=== PATIENT | male | born 1950 | race Two or more races ===

== ENCOUNTER 2019-10-08 10:48 | Day surgery (SDC) | payer MEDICARE, OTHER ==
[~2019-10-08] VITALS: Ht 167.6 cm; Wt 63.5 kg
[2019-10-08] VITALS (12 sets, daily range): BP systolic 146–163; BP diastolic 82–95
[~2019-10-08 10:48] MED LIST: ATORVASTATIN CA40 MG ORAL; METFORMIN HCL500 M1 ORAL; ceFAZolin sod 1 GM in NS 55 ML IVPB ONE
[2019-10-08] MEDS ORDERED: LR 1000ml 1,000 ML IVLG SCH (10:54)
--- NOTE | 2019-10-08 10:56 | Immediate Post-Op Evaluation ---
Immediate Post-Op Evalulation Immediate Post-Op Evalulation Procedure: ESWL,Right Ureteral Stent Placement Date of Evaluation: Oct 08, 2019 Time of Evaluation: 14:47 IV Fluids: 900 LR Blood Products: 0 Estimated Blood Loss: 10 Urinary Output: 0 Blood Pressure Systolic: 156 Blood Pressure Diastolic: 90 Pulse Rate: 70 Respiratory Rate: 16 O2 Sat by Pulse Oximetry: 100 Temperature (Fahrenheit): 97 Pain Score (1-10): 1 Nausea: No Vomiting: No Complications 0 Patient Status: awake, reacts, patent, extubated, none Hydration Status: adequate Dru Gram Ancef IV Given Within 1 Hr of Incision: Yes Time Given: 13:11 Arcenio Velez MD Oct 08, 2019 10:56
[2019-10-08] MEDS ORDERED: DiphenhydrAMINE 50mg/ml Inj IVP PRN (11:00)
[2019-10-08] MEDS ORDERED: Labetalol 5mg/ml 20ml vial IV PRN (11:00)
[2019-10-08] MEDS ORDERED: Hydromorphone 0.5mg/0.5ml inj IVP PRN (11:00)
[2019-10-08] MEDS ORDERED: HYDROcodone/Acetamin 7.5/325 tab ORAL PRN (11:00)
[2019-10-08] MEDS ORDERED: HYDROcodone/Acetamin 5/325 tab ORAL PRN ×2 (11:00→12:30)
[2019-10-08] MEDS ORDERED: oxyCODONE HCL/Acetaminophen 5/325mg ORAL PRN (11:00)
[2019-10-08] MEDS ORDERED: Metoclopramide 10mg/2ml Inj IVP PRN (11:00)
[2019-10-08] MEDS ORDERED: Ketorolac 30mg Inj IV PRN ×2 (11:00)
[2019-10-08] MEDS ORDERED: LORazepam Inj 2mg/ml 1ml IV PRN (11:00)
[2019-10-08] MEDS ORDERED: Meperidine 25mg/0.5ml Inj (FOR RIGORS ONLY) IV PRN (11:00)
[2019-10-08] MEDS ORDERED: Atropine Sulfate 0.4mg/ml inj IVP PRN (11:00)
[2019-10-08] MEDS ORDERED: Midazolam 2mg/2ml Inj IVP PRN (11:00)
[2019-10-08] MEDS ORDERED: fentaNYL 100 mcg/2 mL IV PRN (11:00)
--- NOTE | 2019-10-08 12:21 | Pre-Procedure Note/Attestation ---
Pre-Procedure Note/Attestation Complete Prior to Procedure Planned Procedure: not applicable Procedure Narrative: right rirs eswl right Indications for Procedure Pre-Operative Diagnosis: right renal stone Attestation I attest that I discussed the nature of the procedure; its benefits; risks and complications; and alternatives (and the risks and benefits of such alternatives ), prior to the procedure, with the patient (or the patient's legal kiosk sales representative). I attest that, if there was a reasonable possibility of needing a blood transfusion, the patient (or the patient's legal kiosk sales representative) was given the [facility] standardized written summary, pursuant to the [place] Blood Safety Act ([place] Health and Safety Code # 1645, as amended). I attest that I re-evaluated the patient just prior to the surgery and that there has been no change in the patient's H&P, except as documented below: Tavo Light MD Oct 08, 2019 12:21
--- NOTE | 2019-10-08 12:23 | Anethesia Preoperative Eval ---
Anesthesia Pre-op PMH/ROS General Date of Evaluation: Oct 08, 2019 Time of Evaluation: 12:52 Anesthesiologist: Rosie ASA Score: ASA 3 Mallampati Score Class I : Soft palate, uvula, fauces, pillars visible Class II: Soft palate, uvula, fauces visible Class III: Soft palate, base of uvula visible Class IV: Only hard plate visible Mallampati Classification: Class II Surgeon: Nadege Diagnosis: Abd Pain Surgical Procedure: ESWL, Right Ureteral Stent Placement Family History: no anesthesia problems Allergies: Coded Allergies: No Known Allergies (Unverified , 10/01/19) Medications: see eMAR Patient NPO?: Yes Past Medical History Cardiovascular: Reports: HTN, other - HL Gastrointestinal/Genitourinary: Reports: other - Prostate CA, Colon CA, BPH, Hydronephrosis Endocrine: Reports: DM Anesthesia Pre-op Phys. Exam Physician Exam Last Vital Signs Date Time Temp Pulse Resp B/P (MAP) Pulse Ox O2 Delivery O2 Flow Rate FiO2 10/08/19 11:25 Room Air 10/08/19 11:23 97.5 61 18 154/84 100 Constitutional: NAD Neurologic: CN 2-12 intact Cardiovascular: RRR Respiratory: CTA Gastrointestinal: S/NT/ND Airway Exam Mallampati Score: Class II MO: full ROM: full Teeth: missing, intact Anesthesia Pre-op A/P Risk Assessment & Plan Assessment: ASA 3 Plan: GGA, SED, GlideScope Status Change Before Surgery: No Pre-Antibiotics Dru Gram Ancef IV Given Within 1 Hr of Incision: Yes Time Given: 13:11 Arcenio Velez MD Oct 08, 2019 12:23
--- NOTE | 2019-10-08 12:23 | Brief Operative Note ---
Immediate Post Operative Note Operative Note Pre-op Diagnosis: right renal stone Procedure: eswl rirs right Post-op Diagnosis: same Post-op Diagnosis: same as pre-op Surgeon: Yair light Anesthesia: general Specimen: none Complications: none Condition: stable Fluids: 500 Implant(s) used?: No Tavo Light MD Oct 08, 2019 12:23
[2019-10-08] MEDS ORDERED: HYDROmorphone 1mg/ml Carpuject SUBQ PRN (12:30)
[2019-10-08] MEDS ORDERED: Tylenol #3 tab (300mg/30mg) ORAL PRN (12:30)
[2019-10-08] MEDS ORDERED: Iothalamate Meglumine 60% 30ML INJ ONE (12:45)
[2019-10-08] MEDS ORDERED: Rocuronium Bromide 50mg/5ml Inj IV ONE (13:00)
[2019-10-08] MEDS ORDERED: NS Irrig 2000ml IRRIG ONE (13:00)
[2019-10-08] MEDS ORDERED: LR 1000ml ONE (13:00)
[2019-10-08] MEDS ORDERED: NS Irrig 1000ml ONE (13:00)
[2019-10-08] MEDS ORDERED: Propofol 200mg/20ml IV ONE (13:07)
[2019-10-08] MEDS ORDERED: Sodium Chloride 10ml vial INJ ONE (13:07)
[2019-10-08] MEDS ORDERED: Lidocaine 1% MPF 10mg/ml 5ml ONE (13:07)
--- NOTE | 2019-10-08 13:37 | 48 Hour Post Anesthesia Eval ---
Post Anesthesia Evaluation Procedure: ESWL,Right Ureteral Stent Placement Date of Evaluation: Oct 08, 2019 Time of Evaluation: 16:57 Blood Pressure Systolic: 147 0: 86 Pulse Rate: 61 Respiratory Rate: 18 Temperature (Fahrenheit): 98 O2 Sat by Pulse Oximetry: 98 Airway: patent Nausea: No Vomiting: No Pain Intensity: 2 Hydration Status: adequate Cardiopulmonary Status: Stable Mental Status/LOC: patient returned to baseline Follow-up Care/Observations: 0 Post-Anesthesia Complications: 0 Follow-up care needed: ready to discharge Arcenio Velez MD Oct 08, 2019 13:37
[2019-10-08] MEDS ORDERED: Phenylephrine 10mg/ml Vial ONE (13:46)
[2019-10-08] MEDS ORDERED: Glycopyrrolate 0.2mg/ml 1ml Vial ONE (13:56)
[2019-10-08] MEDS ORDERED: Neostigmine 1mg/ml 10ml Inj ONE (13:56)
[2019-10-08] MEDS ORDERED: D5 1/2NS 1,000 ML IV SCH (17:00)
--- NOTE | 2019-10-10 16:44 | Operative Note - Dictated ---
DATE OF OPERATION: 10/08/2019 PREOPERATIVE DIAGNOSIS: Right renal stone. POSTOPERATIVE DIAGNOSIS: Right renal stone. OPERATION: Cystoscopy, retrograde intrarenal surgery, combined with extracorporeal shock wave lithotripsy of the right renal stone, double-J stent placement. LEVEL GLASS VIAL FILLER: Tavo Light MD ANESTHESIA: General. FINDINGS: Large stone in the calyx of the right kidney. INDICATIONS FOR SURGERY: The patient came with recurrent UTIs. CT urogram showed more than a centimeter stone in the right kidney. Treatment options were explained to him in great length including all potential complications. He signed the consent. DESCRIPTION OF PROCEDURE: He was brought to the operating room, placed in lithotomy position, prepped and draped in standard fashion. Under general anesthesia, cystoscope was introduced into the bladder. Right ureter was cannulated. Guidewire was placed into this kidney, followed by flexible ureteroscope. Stone was found in the using 2500 shocks with 9 kilovolts and extracorporeal shock wave lithotripsy, the stone was well fragmented. Double-J stent, 26 x 6, was placed and left indwelling. The patient tolerated the procedure well. Sponge count, instrument count were correct. Tavo Light M.D. DR: Narinder JOB#: [id number] CC:
== END 2019-10-08 16:50 | disposition home or self-care (01) ==
LOC: SUR 10:48
DX: N20.0 Calculus of kidney (principal); Z87.440 Personal history of urinary (tract) infections; I10 Essential (primary) hypertension; E11.9 Type 2 diabetes mellitus without complications; Z85.038 Personal history of other malignant neoplasm of large intestine; Z85.46 Personal history of malignant neoplasm of prostate
CPT/HCPCS: 52356; J0690; J1940; J2250; J2370; J2405; J2704; J2710; J2765; J7120; 94003; 94150